=== PATIENT | male | born 1955 | race Caucasian/White ===

== ENCOUNTER 2018-05-01 19:49 | Inpatient (IN) | payer MEDICAID | END 2018-05-06 13:08 | disposition home or self-care (01) | LOC: TELE 05-02 → WEST WING 05-04 17:16 → ER 19:49 → WEST WING 05-03 09:11 → TELE-WESTW 05-02 08:45 | PROC: 0W9G3ZZ Drainage of Peritoneal Cavity, Percutaneous Approach (ICD-10-PCS; principal; ~2018-05-01) | PROC: 0W9G3ZZ Drainage of Peritoneal Cavity, Percutaneous Approach (ICD-10-PCS; ~2018-05-01) | DX: K70.31 Alcoholic cirrhosis of liver with ascites (principal); N17.0 Acute kidney failure with tubular necrosis; E43 Unspecified severe protein-calorie malnutrition; D68.9 Coagulation defect, unspecified; D69.6 Thrombocytopenia, unspecified; C22.9 Malignant neoplasm of liver, not specified as primary or secondary; K83.1 Obstruction of bile duct; E87.0 Hyperosmolality and hypernatremia; E87.5 Hyperkalemia; B19.20 Unspecified viral hepatitis C without hepatic coma; K52.9 Noninfective gastroenteritis and colitis, unspecified; E88.09 Other disorders of plasma-protein metabolism, not elsewhere classified ==

== ENCOUNTER 2018-05-20 13:47 | Inpatient (IN) | payer MEDICAID | END 2018-05-27 17:47 | disposition home or self-care (01) | LOC: ER 13:47 → TELE-CENTR 05-21 10:10 → CENTRAL 05-26 12:04 → TELE 19:16 | PROC: 0W9G30Z Drainage of Peritoneal Cavity with Drainage Device, Percutaneous Approach (ICD-10-PCS; principal; ~2018-05-20) | DX: C22.0 Liver cell carcinoma (principal); R18.0 Malignant ascites; D68.9 Coagulation defect, unspecified; D69.6 Thrombocytopenia, unspecified; R65.10 Systemic inflammatory response syndrome (SIRS) of non-infectious origin without acute organ dysfunction; E44.0 Moderate protein-calorie malnutrition; C22.9 Malignant neoplasm of liver, not specified as primary or secondary; I50.9 Heart failure, unspecified; K74.60 Unspecified cirrhosis of liver; N18.3 Chronic kidney disease, stage 3 (moderate); J98.11 Atelectasis; R45.851 Suicidal ideations; F32.9 Major depressive disorder, single episode, unspecified; B19.20 Unspecified viral hepatitis C without hepatic coma; K72.90 Hepatic failure, unspecified without coma ==